=== PATIENT | male | born 1985 | race Caucasian/White ===

== ENCOUNTER 2021-04-16 18:41 | Emergency (ER) | payer OTHER, SELFPAY ==
--- NOTE | 2021-04-16 18:48 | ED.ALCOHOL ---
HPI - Alcohol General Chief Complaint: ETOH/Substance Use Stated Complaint: etoh Source: patient and EMS Mode of arrival: EMS Limitations: altered mental status History of Present Illness HPI narrative: 36-year-old male presents via EMS for alcohol intoxication with Seroquel use. Patient was pulled over by police and had a Breathalyzer test of 0.15. MD complaint: alcohol intoxication Last drink: Just prior to admission Chronic alcohol use: Yes Previous visits for alcohol intoxication: No Recent trauma: No Treatments prior to arrival: none Related Data Allergies Allergy/AdvReac Type Severity Reaction Status Date / Time Unable to Assess Allergy Verified 04/16/21 18:52 Review of Systems Review of Systems: ROS completed at 00:11 Constitutional: No Fever, No Chills ENT/Mouth: No sore throat, No Rhinorrhea Eyes: No Eye Pain, No Swelling, No Redness Cardiovascular: No Chest Pain, No SOB Respiratory: No Cough, No Sputum Gastrointestinal: No Nausea, No Vomiting, No Diarrhea, No abdominal Pain Genitourinary: No Dysuria, No Hematuria Musculoskeletal: No joint pain, No Myalgias, No Joint Swelling Skin: No Skin Lesions, No rash Neuro: No Weakness, No Numbness, No Loss of Consciousness, No Dizziness, No Headache Psych: Positive ETOH and cocaine abuse, No Anxiety, No Depression, No SI/HI/AH/VH Heme/Lymph: No Bruising, No Bleeding,No Lymphadenopathy Endocrine: No Polyuria, No Polydipsia Yes Unobtainable due to mental status [facility] Past Medical History Attestation statement: The following information was validated with the patient. Source: old records reviewed Social History Social History Advance Directives: No Physical Exam ED Vital Signs: Vital Signs - 24 hr 04/16/21 18:56 04/16/21 22:05 Temperature 96.5 F L Pulse Rate 96 90 Respiratory Rate 18 Blood Pressure 108/56 L 102/58 L Pulse Oximetry 95 96 BMI result Body Mass Index 25.1 Appearance: Responsive to sternal rub. Eyes: Pupils equal, round and reactive to light. ENT: Pharynx normal. Neck: Normal inspection. Neck supple. CVS: Normal heart rate and rhythm. Pulses normal. Respiratory: No respiratory distress. Breath sounds normal. Abdomen: Soft and nontender. Skin: Skin warm and dry. Normal skin color. Normal skin turgor. Extremities: No lower extremity edema. Moves all extremities. Neuro: No motor deficit. No sensory deficit. Course Course Course Narrative: 36-year-old male presents via EMS for alcohol intoxication and Seroquel use. Patient was driving to [place] for detox and was pulled over. Breathalyzer was 0.15. Patient required sternal rub for response. Maintaining even unlabored respirations, O2 sat 97%. Order for Narcan if needed. Will continue to observe. 00:11 patient is able to answer questions, easily arousable. Plan of care is for care team consult to try to help patient get back to [facility]. Patient states to have some neck pain without injury or trauma. Patient states that he does need to go to detox and he was on his way there however decided to drink alcohol with his Seroquel. Tox screen is positive for cocaine, patient is denying cocaine use. Plan of care is for care team consult and detox. Physician observation started at this time. MDM - Alcohol MDM Narrative Medical decision making narrative: Polysubstance abuse Differential Diagnosis Differential diagnosis: Likely alcohol dependence Medical Records Attestation: I reviewed the patient's medical records. Lab Data Attestation: I reviewed the patient's lab results. Result diagrams: 04/16/21 22:47 04/16/21 22:47 Labs: Lab Results 04/16/21 04/16/21 04/16/21 Range/Units 22:40 22:40 22:46 WBC (4.8-10.8) X10*3/uL RBC (4.60-5.80) X10*6/uL Hgb (14.0-18.0) g/dl Hct (42.0-52.0) % MCV (80.0-98.0) fL MCH (27.0-33.0) pg MCHC (31.0-36.0) g/dl RDW (11.0-16.0) % Plt Count (160-400) X10*3/uL MPV (9.4-12.4) fL Immature Gran % (Auto) (0.0-0.4) % Neut % (Auto) (45-73) % Lymph % (Auto) (20-40) % [place] % (Auto) (2-11) % Eos % (Auto) (0-4) % Baso % (Auto) (0-2) % Lymph # (Auto) (1.2-4.9) X10*3/uL [place] # (Auto) (0.1-1.2) X10*3/uL Eos # (Auto) (0.0-0.4) X10*3/uL Baso # (Auto) (0.0-0.2) X10*3/uL Abs Immat Gran (auto) (0.00-0.03) X10*3/uL Absolute Neuts (auto) (2.0-8.3) x10*3/uL Absolute Nucleated RBC (0.0-0.012) X10*3/uL Nucleated RBC % (auto) (0.0-0.2) /100WBC Sodium (135-145) mmol/L Potassium (3.3-5.1) mmol/L Chloride (96-108) mmol/L Carbon Dioxide (22-29) mmol/L Anion Gap (12-20) BUN (9-16) mg/dL Creatinine (0.5-1.4) mg/dL Estim Creat Clear Calc Estimated GFR Random Glucose (60-115) mg/dL Calcium (8.4-10.2) mg/dL Total Bilirubin (0.0-1.0) mg/dL AST (5-37) U/L ALT (0-40) U/L Alkaline Phosphatase (39-117) U/L Total Protein (6.5-8.0) g/dL Albumin (3.5-5.0) g/dL Urine Color STRAW Urine Appearance CLEAR Urine pH 6.0 (5.0-8.0) Ur Specific [place] <= 1.005 (1.005-1.025) Urine Protein NEG (NEG-TRACE) MG/DL Urine Glucose (UA) NEG (NEG) MG/DL Urine Ketones NEG (NEG) MG/DL Urine Blood NEG (NEG) Urine Nitrite NEG (NEG) Ur Leukocyte Esterase NEG (NEG) Salicylates (15-30) mg/dL Urine Opiates Screen Not Detected (Not Detect) Urine Fentanyl Screen Not Detected (Not Detect) Acetaminophen (<30) mcg/mL Ur Barbiturates Screen Not Detected (Not Detect) Ur Phencyclidine Scrn Not Detected (Not Detect) Ur Amphetamines Screen Not Detected (Not Detect) U Benzodiazepines Scrn Not Detected (Not Detect) Urine Cocaine Screen POSITIVE H (Not Detect) U Marijuana (THC) Screen Not Detected (Not Detect) Ethyl Alcohol 132 mg/dL 04/16/21 04/16/21 Range/Units 22:47 22:47 WBC 7.1 (4.8-10.8) X10*3/uL RBC 4.14 L (4.60-5.80) X10*6/uL Hgb 12.9 L (14.0-18.0) g/dl Hct 37.5 L (42.0-52.0) % MCV 90.6 (80.0-98.0) fL MCH 31.2 (27.0-33.0) pg MCHC 34.4 (31.0-36.0) g/dl RDW 13.3 (11.0-16.0) % Plt Count 222 (160-400) X10*3/uL MPV 10.0 (9.4-12.4) fL Immature Gran % (Auto) 0.3 (0.0-0.4) % Neut % (Auto) 39.7 L (45-73) % Lymph % (Auto) 46.0 H (20-40) % [place] % (Auto) 9.8 (2-11) % Eos % (Auto) 3.8 (0-4) % Baso % (Auto) 0.4 (0-2) % Lymph # (Auto) 3.3 (1.2-4.9) X10*3/uL [place] # (Auto) 0.7 (0.1-1.2) X10*3/uL Eos # (Auto) 0.3 (0.0-0.4) X10*3/uL Baso # (Auto) 0.0 (0.0-0.2) X10*3/uL Abs Immat Gran (auto) 0.02 (0.00-0.03) X10*3/uL Absolute Neuts (auto) 2.8 (2.0-8.3) x10*3/uL Absolute Nucleated RBC 0.000 (0.0-0.012) X10*3/uL Nucleated RBC % (auto) 0.0 (0.0-0.2) /100WBC Sodium 141 (135-145) mmol/L Potassium 3.7 (3.3-5.1) mmol/L Chloride 105 (96-108) mmol/L Carbon Dioxide 24 (22-29) mmol/L Anion Gap 16 (12-20) BUN 14 (9-16) mg/dL Creatinine 0.82 (0.5-1.4) mg/dL Estim Creat Clear Calc 130.0 Estimated GFR > 60 Random Glucose 101 (60-115) mg/dL Calcium 9.5 (8.4-10.2) mg/dL Total Bilirubin 0.7 (0.0-1.0) mg/dL AST 42 H (5-37) U/L ALT 28 (0-40) U/L Alkaline Phosphatase 74 (39-117) U/L Total Protein 7.0 (6.5-8.0) g/dL Albumin 4.3 (3.5-5.0) g/dL Urine Color Urine Appearance Urine pH (5.0-8.0) Ur Specific [place] (1.005-1.025) Urine Protein (NEG-TRACE) MG/DL Urine Glucose (UA) (NEG) MG/DL Urine Ketones (NEG) MG/DL Urine Blood (NEG) Urine Nitrite (NEG) Ur Leukocyte Esterase (NEG) Salicylates < 5.0 L (15-30) mg/dL Urine Opiates Screen (Not Detect) Urine Fentanyl Screen (Not Detect) Acetaminophen < 1 (<30) mcg/mL Ur Barbiturates Screen (Not Detect) Ur Phencyclidine Scrn (Not Detect) Ur Amphetamines Screen (Not Detect) U Benzodiazepines Scrn (Not Detect) Urine Cocaine Screen (Not Detect) U Marijuana (THC) Screen (Not Detect) Ethyl Alcohol mg/dL Discharge Plan Discharge Clinical Impression: Polysubstance abuse Patient Disposition: Home, Self-Care Instructions: Polysubstance Abuse (ED) Additional Instructions: Please follow-up with detox. Thank you for choosing this emergency department for evaluation. Please follow-up with primary care physician as needed. Return to the emergency department for any new, concerning, or worsening symptoms.
[2021-04-16 18:56] VITALS: BP 106/60; BP 108/56; PULSE 92; PULSE 96; RESP 18; TEMP 35.8; O2SAT 95; O2SAT 97; BMI 25.1
--- NOTE | 2021-04-16 19:20 | PC.NURSE ---
RN and PCT attempted to get lab work on pt. he became agressive and tried to swing at staff. will hold off on lab work at this time. FRAME CATCHER Diana aware.
--- NOTE | 2021-04-16 19:45 | PC.NURSE ---
pt SaO2 95% will not administer narcan at this time - per EMS pt only with alcohol and seroquel on board.
[2021-04-16 22:05] VITALS: BP 102/58; PULSE 90; O2SAT 96
--- NOTE | 2021-04-16 22:51 | PC.NURSE ---
pt woke, asked to use the bathroom. unable to ambulate well reports he had a previous injury to his ankle. standing with a standby assist. pt gave urine sample and agreeable to blood work
[2021-04-16 22:54] LABS: MANUAL DIFF FLAG NO
[2021-04-16 22:56] LABS: Basophils Percent Auto 0.4 % (0-2); Eosinophils Absolute Auto 0.3 X10*3/uL (0.0-0.4); Eosinophils Percent Auto 3.8 % (0-4); Hematocrit 37.5 % (42.0-52.0); Hemoglobin 12.9 g/dl (14.0-18.0); Imm Gran Abs Auto 0.02 X10*3/uL (0.00-0.03); Imm Gran Pct Auto 0.3 % (0.0-0.4); Lymphocytes Absolute Auto 3.3 X10*3/uL (1.2-4.9); Mean Corpuscular HGB Conc 34.4 g/dl (31.0-36.0); Mean Corpuscular Hemoglobin 31.2 pg (27.0-33.0); Mean Corpuscular Volume 90.6 fL (80.0-98.0); Monocytes Absolute Auto 0.7 X10*3/uL (0.1-1.2); Monocytes Percent Auto 9.8 % (2-11); Neutrophils Absolute Auto 2.8 x10*3/uL (2.0-8.3); Neutrophils Percent Auto 39.7 % (45-73); Platelet Count 222 X10*3/uL (160-400); Red Blood Count 4.14 X10*6/uL (4.60-5.80); Red Cell Distribution Width 13.3 % (11.0-16.0); White Blood Count 7.1 X10*3/uL (4.8-10.8)
[2021-04-16 23:05] LABS: Amphetamine Screen Urine Not Detected (Not Detect); Barbiturates, Urine Not Detected (Not Detect); Benzodiazepines Screen Urine Not Detected (Not Detect); Cannabinoid Screen Urine Not Detected (Not Detect); Cocaine Screen Urine POSITIVE (Not Detect); Fentanyl, urine Not Detected (Not Detect); Opiate Screen Urine Not Detected (Not Detect); Phencyclidine Screen Urine Not Detected (Not Detect)
[2021-04-16 23:08] LABS: Appearance Urine CLEAR; Color Urine STRAW; Glucose Urine UA NEG (NEG); Leukocyte Esterase Urine NEG (NEG); Nitrite Urine NEG (NEG); Specific Gravity - Urine <= 1.005 (1.005-1.025); Urine Blood NEG (NEG); Urine Ketones NEG (NEG); Urine Protein NEG (NEG-TRACE)
[2021-04-16 23:19] LABS: Ethanol 132 mg/dL
[2021-04-16 23:25] LABS: Acetaminophen LAB < 1 mcg/mL (<30); Alanine Aminotransferase 28 U/L (0-40); Albumin Level 4.3 g/dL (3.5-5.0); Alkaline Phosphatase 74 U/L (39-117); Anion Gap 16 (12-20); Aspartate Amino Transferase 42 U/L (5-37); Bilirubin Total 0.7 mg/dL (0.0-1.0); Blood Urea Nitrogen 14 mg/dL (9-16); Calcium 9.5 mg/dL (8.4-10.2); Carbon Dioxide 24 mmol/L (22-29); Chloride 105 mmol/L (96-108); Estimated Glomerular Filt Rate > 60; Glucose Random 101 mg/dL (60-115); Potassium 3.7 mmol/L (3.3-5.1); Salicylate < 5.0 mg/dL (15-30); Sodium 141 mmol/L (135-145)
--- NOTE | 2021-04-17 01:27 | MHC.CARE ---
CARE team consult received for detox placement. CARE/recovery team will follow up with Reyna Christiansen in the morning re: bed availability.
--- NOTE | 2021-04-17 04:24 | PC.NURSE ---
pt sleeping no s/s of resp distress. pt visable to the nurse, needs met at bedside.
--- NOTE | 2021-04-17 08:55 | MHC.CARE ---
Accepted to [facility] for 11:15
== END 2021-04-17 09:34 | disposition other institution (70) ==
PROVIDERS: Nurse Practitioner Family; Emergency Provider Internal Medicine
DX: F10.129 Alcohol abuse with intoxication, unspecified (principal); F10.10 Alcohol abuse, uncomplicated; Y90.6 Blood alcohol level of 120-199 mg/100 ml; Z79.899 Other long term (current) drug therapy; Z71.41 Alcohol abuse counseling and surveillance of alcoholic
CPT/HCPCS: 80053; 80143; 80179; 80307; 81003; 82077; 85025; 99284; 99285

== ENCOUNTER 2021-04-27 14:12 | Emergency (ER) | payer OTHER, SELFPAY ==
[2021-04-27] VITALS (9 sets, daily range): BP systolic 90–129; BP diastolic 42–76; PULSE 80–110; RESP 14–20; TEMP 36.1; O2SAT 95–96; BMI 23.1
--- NOTE | 2021-04-27 14:29 | ED.ALCOHOL ---
HPI - Alcohol General Chief Complaint: ETOH/Substance Use Stated Complaint: UNCOOPERATIVE ETOH INTOXICATED PER EMS Time Seen by Provider: 04/27/21 14:27 Source: patient and EMS Mode of arrival: EMS Limitations: other (ETOH intoxication) History of Present Illness HPI narrative: went to [facility] for ETOH detox but was too intoxicated to be considered sent here for clearance, no SI complaint: alcohol intoxication and desires rehab Last drink: Just prior to admission Chronic alcohol use: Yes Previous visits for alcohol intoxication: Yes Recent trauma: No Associated symptoms: denies other symptoms Treatments prior to arrival: none Related Data Allergies Allergy/AdvReac Type Severity Reaction Status Date / Time Unable to Assess Allergy Verified 04/16/21 18:52 Review of Systems Review of Systems: ROS unable to be obtained due to altered mental status [facility] Past Medical History Attestation statement: The following information was validated with the patient. Medical History Alcohol abuse Social History Social History (Updated 04/27/21 @ 14:36 by Emma Pollard DO) Alcohol intake: current Patient Tobacco Use Status: Current someday Tobacco user Advance Directives: No Physical Exam ED Vital Signs: Vital Signs - 24 hr 04/27/21 15:02 04/27/21 15:44 Temperature 97 F Pulse Rate 100 110 H Respiratory Rate 14 20 Blood Pressure 129/76 112/59 L Pulse Oximetry 95 95 BMI result Body Mass Index 23.1 Appearance: Alert. Oriented X3. No acute distress. Strong ETOH odor unsteady gait, very animated Eyes: Pupils equal, round and reactive to light. ENT: Pharynx normal. Atraumatic Neck: Normal inspection. Neck supple. CVS: Normal heart rate and rhythm. Pulses normal. Respiratory: No respiratory distress. Breath sounds normal. Abdomen: Soft and nontender. Skin: Skin warm and dry. Normal skin color. Normal skin turgor. Extremities: No lower extremity edema. No calf ttp Neuro: Oriented X 3. No motor deficit. No sensory deficit. Unsteady gait, cannot participate in CN exam, reaches out repeatedly for high fives and fist bumps Course Course Course Narrative: Physician observation started at 308pm Patient placed in physician observation because the patient needed more time for clinical sobriety and detox placement. At the time observation was started the patient's vitals were stable, patient is alert and oriented but slightly agitated, Neuro: nonfocal, CV RRR, Lungs clear PO ativan and haldol to aid in his sleep per his request MDM - Alcohol MDM Narrative Medical decision making narrative: 36 yo male with hx of ETOH abuse here with c/o wanting to go to detox no SI at this time will observe until clinically sober involve recovery team and obtain med clearance labs. no signs of trauma Lab Data Result diagrams: 04/27/21 14:43 04/27/21 14:43 Labs: Lab Results 04/27/21 04/27/21 04/27/21 Range/Units 14:31 14:39 14:39 WBC (4.8-10.8) X10*3/uL RBC (4.60-5.80) X10*6/uL Hgb (14.0-18.0) g/dl Hct (42.0-52.0) % MCV (80.0-98.0) fL MCH (27.0-33.0) pg MCHC (31.0-36.0) g/dl RDW (11.0-16.0) % Plt Count (160-400) X10*3/uL MPV (9.4-12.4) fL Immature Gran % (Auto) (0.0-0.4) % Neut % (Auto) (45-73) % Lymph % (Auto) (20-40) % [place] % (Auto) (2-11) % Eos % (Auto) (0-4) % Baso % (Auto) (0-2) % Lymph # (Auto) (1.2-4.9) X10*3/uL [place] # (Auto) (0.1-1.2) X10*3/uL Eos # (Auto) (0.0-0.4) X10*3/uL Baso # (Auto) (0.0-0.2) X10*3/uL Abs Immat Gran (auto) (0.00-0.03) X10*3/uL Absolute Neuts (auto) (2.0-8.3) x10*3/uL Absolute Nucleated RBC (0.0-0.012) X10*3/uL Nucleated RBC % (auto) (0.0-0.2) /100WBC Sodium (135-145) mmol/L Potassium (3.3-5.1) mmol/L Chloride (96-108) mmol/L Carbon Dioxide (22-29) mmol/L Anion Gap (12-20) BUN (9-16) mg/dL Creatinine (0.5-1.4) mg/dL Estim Creat Clear Calc Estimated GFR Random Glucose (60-115) mg/dL Calcium (8.4-10.2) mg/dL Total Bilirubin (0.0-1.0) mg/dL Direct Bilirubin (0.0-0.5) mg/dL AST (5-37) U/L ALT (0-40) U/L Alkaline Phosphatase (39-117) U/L Total Protein (6.5-8.0) g/dL Albumin (3.5-5.0) g/dL Urine Color STRAW Urine Appearance CLEAR Urine pH 6.5 (5.0-8.0) Ur Specific [place] <= 1.005 (1.005-1.025) Urine Protein NEG (NEG-TRACE) MG/DL Urine Glucose (UA) NEG (NEG) MG/DL Urine Ketones NEG (NEG) MG/DL Urine Blood NEG (NEG) Urine Nitrite NEG (NEG) Ur Leukocyte Esterase NEG (NEG) Urine Opiates Screen Not Detected (Not Detect) Urine Fentanyl Screen Not Detected (Not Detect) Ur Barbiturates Screen Not Detected (Not Detect) Ur Phencyclidine Scrn Not Detected (Not Detect) Ur Amphetamines Screen Not Detected (Not Detect) U Benzodiazepines Scrn Not Detected (Not Detect) Urine Cocaine Screen Not Detected (Not Detect) U Marijuana (THC) Screen Not Detected (Not Detect) Ethyl Alcohol mg/dL COVID-19 (YEISON) Negative (Negative) COVID-19 Clin Com See Note 04/27/21 04/27/21 04/27/21 Range/Units 14:43 14:43 14:43 WBC 6.8 (4.8-10.8) X10*3/uL RBC 4.58 L (4.60-5.80) X10*6/uL Hgb 14.1 (14.0-18.0) g/dl Hct 41.0 L (42.0-52.0) % MCV 89.5 (80.0-98.0) fL MCH 30.8 (27.0-33.0) pg MCHC 34.4 (31.0-36.0) g/dl RDW 13.2 (11.0-16.0) % Plt Count 273 (160-400) X10*3/uL MPV 10.1 (9.4-12.4) fL Immature Gran % (Auto) 0.3 (0.0-0.4) % Neut % (Auto) 58.0 (45-73) % Lymph % (Auto) 28.7 (20-40) % [place] % (Auto) 11.5 H (2-11) % Eos % (Auto) 1.2 (0-4) % Baso % (Auto) 0.3 (0-2) % Lymph # (Auto) 1.9 (1.2-4.9) X10*3/uL [place] # (Auto) 0.8 (0.1-1.2) X10*3/uL Eos # (Auto) 0.1 (0.0-0.4) X10*3/uL Baso # (Auto) 0.0 (0.0-0.2) X10*3/uL Abs Immat Gran (auto) 0.02 (0.00-0.03) X10*3/uL Absolute Neuts (auto) 3.9 (2.0-8.3) x10*3/uL Absolute Nucleated RBC 0.000 (0.0-0.012) X10*3/uL Nucleated RBC % (auto) 0.0 (0.0-0.2) /100WBC Sodium 147 H (135-145) mmol/L Potassium 4.0 (3.3-5.1) mmol/L Chloride 108 (96-108) mmol/L Carbon Dioxide 29 (22-29) mmol/L Anion Gap 14 (12-20) BUN 8 L (9-16) mg/dL Creatinine 0.85 (0.5-1.4) mg/dL Estim Creat Clear Calc TNP Estimated GFR > 60 Random Glucose 114 (60-115) mg/dL Calcium 10.3 H D (8.4-10.2) mg/dL Total Bilirubin 0.7 (0.0-1.0) mg/dL Direct Bilirubin 0.2 (0.0-0.5) mg/dL AST 52 H (5-37) U/L ALT 55 H (0-40) U/L Alkaline Phosphatase 84 (39-117) U/L Total Protein 7.5 (6.5-8.0) g/dL Albumin 4.7 (3.5-5.0) g/dL Urine Color Urine Appearance Urine pH (5.0-8.0) Ur Specific [place] (1.005-1.025) Urine Protein (NEG-TRACE) MG/DL Urine Glucose (UA) (NEG) MG/DL Urine Ketones (NEG) MG/DL Urine Blood (NEG) Urine Nitrite (NEG) Ur Leukocyte Esterase (NEG) Urine Opiates Screen (Not Detect) Urine Fentanyl Screen (Not Detect) Ur Barbiturates Screen (Not Detect) Ur Phencyclidine Scrn (Not Detect) Ur Amphetamines Screen (Not Detect) U Benzodiazepines Scrn (Not Detect) Urine Cocaine Screen (Not Detect) U Marijuana (THC) Screen (Not Detect) Ethyl Alcohol 322 H* mg/dL COVID-19 (YEISON) (Negative) COVID-19 Clin Com Discharge Plan Discharge Clinical Impression: Alcohol abuse Patient Disposition: Still a Patient
--- NOTE | 2021-04-27 14:29 | MHC.CARE ---
CARE Team received call from [facility]- Pt was too intoxicated to complete detox intake. [facility] will have a bed for tomorrow pending medical clearance.
[2021-04-27 14:49] LABS: Appearance Urine CLEAR; Color Urine STRAW; Glucose Urine UA NEG (NEG); Leukocyte Esterase Urine NEG (NEG); Nitrite Urine NEG (NEG); PH 6.5 (5.0-8.0); Specific Gravity - Urine <= 1.005 (1.005-1.025); Urine Blood NEG (NEG); Urine Ketones NEG (NEG); Urine Protein NEG (NEG-TRACE)
[2021-04-27 14:52] LABS: MANUAL DIFF FLAG NO
[2021-04-27 14:55] LABS: Basophils Percent Auto 0.3 % (0-2); Eosinophils Absolute Auto 0.1 X10*3/uL (0.0-0.4); Eosinophils Percent Auto 1.2 % (0-4); Hemoglobin 14.1 g/dl (14.0-18.0); Imm Gran Abs Auto 0.02 X10*3/uL (0.00-0.03); Imm Gran Pct Auto 0.3 % (0.0-0.4); Lymphocytes Absolute Auto 1.9 X10*3/uL (1.2-4.9); Lymphocytes Percent Auto 28.7 % (20-40); Mean Corpuscular HGB Conc 34.4 g/dl (31.0-36.0); Mean Corpuscular Hemoglobin 30.8 pg (27.0-33.0); Mean Corpuscular Volume 89.5 fL (80.0-98.0); Mean Platelet Volume 10.1 fL (9.4-12.4); Monocytes Absolute Auto 0.8 X10*3/uL (0.1-1.2); Monocytes Percent Auto 11.5 % (2-11); Neutrophils Absolute Auto 3.9 x10*3/uL (2.0-8.3); Platelet Count 273 X10*3/uL (160-400); Red Blood Count 4.58 X10*6/uL (4.60-5.80); Red Cell Distribution Width 13.2 % (11.0-16.0); White Blood Count 6.8 X10*3/uL (4.8-10.8)
[2021-04-27 15:07] LABS: COVID-19 Test Negative (Negative)
[2021-04-27 15:07] LABS: Amphetamine Screen Urine Not Detected (Not Detect); Barbiturates, Urine Not Detected (Not Detect); Benzodiazepines Screen Urine Not Detected (Not Detect); Cannabinoid Screen Urine Not Detected (Not Detect); Cocaine Screen Urine Not Detected (Not Detect); Fentanyl, urine Not Detected (Not Detect); Opiate Screen Urine Not Detected (Not Detect); Phencyclidine Screen Urine Not Detected (Not Detect)
[2021-04-27 15:12] LABS: Ethanol 322 mg/dL
[2021-04-27 15:14] LABS: Alanine Aminotransferase 55 U/L (0-40); Albumin Level 4.7 g/dL (3.5-5.0); Alkaline Phosphatase 84 U/L (39-117); Anion Gap 14 (12-20); Aspartate Amino Transferase 52 U/L (5-37); Bilirubin Direct 0.2 mg/dL (0.0-0.5); Bilirubin Total 0.7 mg/dL (0.0-1.0); Blood Urea Nitrogen 8 mg/dL (9-16); Calcium 10.3 mg/dL (8.4-10.2); Carbon Dioxide 29 mmol/L (22-29); Chloride 108 mmol/L (96-108); Estimated Glomerular Filt Rate > 60; Glucose Random 114 mg/dL (60-115); Sodium 147 mmol/L (135-145); Total Protein 7.5 g/dL (6.5-8.0)
[2021-04-27] MEDS: LORazepam 1 MG TABLET PO (15:33)
[2021-04-27] MEDS: LORazepam 2 MG/ML VIAL IM (16:36)
[2021-04-27] MEDS: Haloperidol Lactate 5 MG/ML VIAL IM (16:36)
--- NOTE | 2021-04-27 17:44 | PC.NURSE ---
Addendum entered by Ирина Knapp RN 04/27/21 17:48: Restraints removed at 1725* Original Note: Patient very agitated, not listening to staff, disruptive, throwing himself on the floor. Agreeable to 1 mg of ativan PO, which did not calm him. Many measures taken to calm the patient including giving food and drink, sitter, attempting to call , and allowing to vent. Patient refusing vital signs. Increased agitation, began punching side rails of stretcher, swatting at staff. Haldol 5 mg IM and Ativan 2 mg IM given at 1640. Patient continuing to resist, yelling, swearing, attempting to hit staff. 4 point restraints ordered and applied at this time as well. Patient asleep at 1705. Able to take vital signs, taken q 15 min. + CMS to all extremities checked q 15 minutes. Restraints removed at 1525, patient remains asleep, sitter remains in place. Face to face completed at 1735 per policy. Will continue to monitor.
--- NOTE | 2021-04-27 19:30 | PC.NURSE ---
Report taken from Ирина, this RN resuming care. Pt sleeping in bed in NAD. VSS. Continue to monitor.
[2021-04-28 00:09] VITALS: BP 106/68; PULSE 84; RESP 12; TEMP 36.3; O2SAT 94
--- NOTE | 2021-04-28 00:19 | PC.NURSE ---
Pt remains asleep in bed @ this time in NAD. Continue to monitor.
[2021-04-28 01:53] VITALS: BP 98/62; PULSE 87; RESP 12; TEMP 36.4; O2SAT 98
--- NOTE | 2021-04-28 02:12 | PC.NURSE ---
Pt wakes from sleep, ambulating to the bathroom with a steady gait. Pt calm/cooperative, provided with food/drink. Pt aware of plan of care for [facility] in the morning. VSS. Pt resting in bed in NAD.
--- NOTE | 2021-04-28 03:12 | PC.NURSE ---
at bedside for primary eval.
[2021-04-28] MEDS: Ibuprofen 400 MG TABLET PO (04:29)
--- NOTE | 2021-04-28 04:30 | PC.NURSE ---
Pt reporting a WALTERS, requesting Motrin, medicated per request.
[2021-04-28 04:38] VITALS: BP 109/48; PULSE 108; RESP 12; TEMP 36.4; O2SAT 96
[2021-04-28 06:18] VITALS: BP 103/60; PULSE 87; RESP 12; TEMP 36.6; O2SAT 96
--- NOTE | 2021-04-28 07:31 | PC.NURSE ---
Pt ambulatory to pod with NADINE Rocha. steady gait. no tremors. has been on phone with who plans to provide transportation to [facility] for 10am.
--- NOTE | 2021-04-28 08:25 | PC.NURSE ---
this automatic typewriter inspector assumed care of this pt at 0730. pt alert and oriented, denies pain. pt calm and cooperative. pt sleep throughout the night per report from ed nurse. pt transferred from main ed to behavioral pod. pt to be picked up by his sometime this morning. Scissors Grinder Jamar in with pt. pt has 1100 appointment for intake with [facility]. will follow up.
[2021-04-28 09:00] VITALS: BP 110/60; PULSE 72; RESP 18; TEMP 36.5; O2SAT 97
--- NOTE | 2021-04-28 09:07 | MHC.RECOVSUP ---
Recovery Support note: Patient is a 36 year old Georgian speaking male who presented to [facility] intoxicated after presenting late for an ATS intake. Patient reports he is still interested in going to treatment. [facility] confirms a bed is held for him for 11:15 and that he must call to do an intake. This editorial writer offered to have patient remain in the ED until admission time however he is declining. Patient will complete intake here and his will bring him to [facility] for treatment. Discussed case with ED provider, RN and CARE Team.
--- NOTE | 2021-04-28 09:13 | PC.NURSE ---
pt did intake with [facility] prior to leaving the pod. pt alert and oriented, vss, denies pain. discharge instructions reviewed with pt. pt voluntarily agreed with discharge plans. pt escorted to waiting room by mht. pt's will pick him up.
== END 2021-04-28 09:14 | disposition home or self-care (01) ==
PROVIDERS: Emergency Provider Emergency Medicine
DX: F10.120 Alcohol abuse with intoxication, uncomplicated (principal); Y90.8 Blood alcohol level of 240 mg/100 ml or more; R45.1 Restlessness and agitation; R45.6 Violent behavior; Z20.822 Contact with and (suspected) exposure to COVID-19; F17.200 Nicotine dependence, unspecified, uncomplicated
CPT/HCPCS: 36415; 80048; 80076; 80307; 81003; 82077; 85025; 87635; 96372; 99285; J2060